=== PATIENT | female | born 1955 | race Caucasian/White ===

== ENCOUNTER 2018-12-08 07:09 | Day surgery (SDC) | payer BC ==
[2018-12-07 15:38] VITALS: BMI 34.9
[2018-12-08] MEDS ORDERED: PROPOFOL 20 ML ONE ×2 (08:16)
[2018-12-08 08:57] VITALS: TEMP 98
[2018-12-08 09:49] VITALS: BP 116/57; PULSE 66
== END 2018-12-08 09:30 | disposition home or self-care (01) ==
LOC: FASU-ENDO 07:09
PROVIDERS: ATTEND Internal Medicine Gastroenterology
PROC: 0DJD8ZZ Inspection of Lower Intestinal Tract, Via Natural or Artificial Opening Endoscopic (ICD-10-PCS; principal; 2018-12-08 08:29)
DX: Z12.11 Encounter for screening for malignant neoplasm of colon (principal)